=== PATIENT | female | born 1945 | race African-American/Black ===

== ENCOUNTER 2017-05-31 15:19 | Inpatient (IN) | payer MEDICARE, MEDICAID ==
[~2017-05-31] VITALS: Ht 170.2 cm; Wt 108.9 kg
[2017-05-31] MEDS ORDERED: AMLO10TA80 PO (15:26)
[2017-05-31] MEDS ORDERED: LISI-186 PO (15:26)
[2017-05-31] MEDS ORDERED: HYDR-4133 PO (15:27)
[2017-05-31 16:29] LABS: BASOPHILS % 0.6 % (0.0-2.0); HEMATOCRIT. 30.1 % (36.0-48.0); HEMOGLOBIN. 10.3 g/dL (12.0-16.0); LYMPHOCYTES % 30.8 % (20.0-50.0); MEAN CORPUSCULAR HEMOGLOBIN 33.3 pg (28.0-32.0); MEAN PLATELET VOLUME 8.2 fl (7.4-10.4); MONOCYTES % 9.4 % (2.0-8.0); NEUTROPHILS % 58.2 % (40.0-76.0); PLATELET 320 x1000/uL (130-400); RED CELL DISTRIBUTION WIDTH 16.9 % (11.6-14.6)
[2017-05-31 16:32] LABS: PROTHROMBIN TIME 10.3 sec (9.4-11.6)
[2017-05-31 16:33] LABS: CHLORIDE 97 mEq/L (98-107)
[2017-05-31] MEDS ORDERED: FUROSEMIDE 40MG/4ML VIAL IVP ONE (18:40)
[2017-05-31] MEDS ORDERED: LEVOFLOXACIN 750MG PREMIX 150 ML IV ONE (18:41)
[2017-05-31] MEDS ORDERED: IPRATROPIUM/ALBUTEROL 0.5-3(2.5)MG/3ML NEB INH PRN (19:30)
[2017-05-31] MEDS ORDERED: MAGNESIUM/ALUMINUM HYDROXIDE/SIMETHICONE 30ML UDC PO PRN (19:30)
[2017-05-31] MEDS ORDERED: POTASSIUM CHLORIDE 20MEQ TABLET SR PO NR (19:30)
[2017-05-31 19:46] LABS: CLARITY URINE CLEAR (CLEAR); COLOR URINE YELLOW (YELLOW); KETONES URINE NEGATIVE (NEGATIVE); LEUKOCYTE ESTERASE URINE 2+ (NEGATIVE); NITRITE URINE NEGATIVE (NEGATIVE); OCCULT BLOOD URINE TRACE (NEGATIVE); PH URINE >=9.0 (4.5-8.0); PROTEIN URINE 1+ (NEGATIVE); SPECIFIC GRAVITY URINE 1.008 (1.005-1.030); UROBILINOGEN URINE 0.2 E.U./dL (0.2-1.0)
[2017-05-31 19:59] LABS: OPIATES URINE SCREEN NEGATIVE (NEGATIVE)
[2017-05-31 20:00] LABS: *AMPHETAMINES SCREEN URINE NEGATIVE (NEGATIVE); *BARBITURATES SCREEN URINE NEGATIVE (NEGATIVE); *BENZODIAZEPINES SCREEN URINE NEGATIVE (NEGATIVE); *COCAINE SCREEN URINE NEGATIVE (NEGATIVE); CANNABINOID URINE SCREEN NEGATIVE (NEGATIVE); PHENCYCLIDINE URINE SCREEN NEGATIVE (NEGATIVE)
[2017-05-31 20:01] LABS: METHADONE URINE SCREEN NEGATIVE (NEGATIVE)
[2017-05-31] MEDS ORDERED: CEFTRIAXONE 1 G PREMIX 50 ML IV ONE (21:15)
[2017-05-31 22:25] VITALS: BP 131/75
[2017-05-31] MEDS ORDERED: CINA30 PO (23:43)
[2017-06-01] VITALS: BP 148/78
[2017-06-01] MEDS: IPRATROPIUM/ALBUTEROL 0.5-3(2.5)MG/3ML NEB INH SCH ×3 (00:37→22:06)
[2017-06-01] MEDS ORDERED: POTASSIUM CHLORIDE INJ 40 MEQ in DEXT 5% WATER 250 ML IV NR (02:00)
[2017-06-01] MEDS: ZOLPIDEM TARTRATE 5MG TABLET PO PRN ×2 (02:51→21:58)
[2017-06-01 04:00] VITALS: BP 140/89
[2017-06-01 07:01] LABS: BASOPHILS % 0.4 % (0.0-2.0); EOSINOPHILS % 1.3 % (0.0-5.0); HEMATOCRIT. 27.2 % (36.0-48.0); HEMOGLOBIN. 9.2 g/dL (12.0-16.0); LYMPHOCYTES % 27.2 % (20.0-50.0); MEAN CORPUSCULAR HEMOGLOBIN 32.9 pg (28.0-32.0); MEAN CORPUSCULAR VOLUME 97.4 fL (81.0-99.0); MEAN PLATELET VOLUME 8.5 fl (7.4-10.4); MONOCYTES % 10.2 % (2.0-8.0); NEUTROPHILS % 60.9 % (40.0-76.0); PLATELET 267 x1000/uL (130-400); RED BLOOD CELL COUNT 2.79 mill/uL (4.2-5.4)
[2017-06-01 07:35] LABS: PHOSPHORUS 5.8 mg/dL (2.5-4.9)
[2017-06-01 08:00] VITALS: BP 150/84
[2017-06-01] MEDS: OMEPRAZOLE 20MG CAPSULE EXTENDED RELEASE PO SCH (08:49)
[2017-06-01] MEDS ORDERED: POTASSIUM CHLORIDE 20MEQ TABLET SR PO NR (09:00)
[2017-06-01] MEDS: FOLIC ACID/VITAMIN B COMP W-C TABLET PO SCH (11:33)
[2017-06-01] MEDS ORDERED: FUROSEMIDE 40MG/4ML VIAL IVP NR (11:45)
[2017-06-01 12:00] VITALS: BP 154/66
[2017-06-01] MEDS: ASPIRIN 81MG EC TABLET PO SCH (12:52)
[2017-06-01] MEDS: ENOXAPARIN 30MG/0.3ML SYR SUBCUT SCH (12:53)
[2017-06-01] MEDS: SEVELAMER CARBONATE 800 MG TABLET PO SCH ×2 (13:10→18:10)
[2017-06-01] MEDS ORDERED: KCL 20MEQ/100ML PREMIX 100 ML IV NR (13:30)
[2017-06-01] MEDS ORDERED: KCL 20MEQ/100ML PREMIX 100 ML IV SCH (15:30)
[2017-06-01 16:00] VITALS: BP 140/72
[2017-06-01 16:55] LABS: BG BASE EXCESS 2.3 mmol/L (-2.0-2.0); BG CARBOXYHEMOGLOBIN 0.3 % (0.5-1.5); BG DEOXYHEMOGLOBIN 1.9 % (0.0-5.0); BG FRACTION INSPIRED OXYGEN 28; BG HCO3 ACT 25.1 mmol/L (22.0-26.0); BG METHEMOGLOBIN 0.1 % (0.0-1.5); BG OXYGEN SATURATION 98.1 % (92.0-98.5); BG OXYHEMOGLOBIN 97.7 % (94.0-97.0); BG PCO2 32.2 mmHg (35.0-45.0); BG SAMPLE SITE RIGHT RADIAL; BG TOTAL HEMOGLOBIN 9.9 g/dL (12.0-18.0); BG VENT MODE NASAL CANNULA
[2017-06-01] MEDS: AMLODIPINE 5MG TABLET PO SCH (18:31)
[2017-06-01 20:00] VITALS: BP 144/91
[2017-06-01] MEDS: LISINOPRIL 10MG TABLET PO SCH (21:11)
[2017-06-01] MEDS: CARVEDILOL 6.25 MG TABLET PO SCH (21:11)
[2017-06-02] VITALS: BP 132/63
[2017-06-02] MEDS: IPRATROPIUM/ALBUTEROL 0.5-3(2.5)MG/3ML NEB INH SCH ×2 (03:50→08:21)
[2017-06-02 04:00] VITALS: BP 122/66
[2017-06-02 06:05] LABS: BASOPHILS % 0.7 % (0.0-2.0); EOSINOPHILS % 2.8 % (0.0-5.0); HEMATOCRIT. 27.1 % (36.0-48.0); HEMOGLOBIN. 9.1 g/dL (12.0-16.0); LYMPHOCYTES % 32.5 % (20.0-50.0); MEAN CORPUSCULAR VOLUME 98.1 fL (81.0-99.0); MEAN PLATELET VOLUME 8.2 fl (7.4-10.4); PLATELET 247 x1000/uL (130-400); RED BLOOD CELL COUNT 2.76 mill/uL (4.2-5.4); RED CELL DISTRIBUTION WIDTH 16.9 % (11.6-14.6)
[2017-06-02 06:49] LABS: CHLORIDE 98 mEq/L (98-107)
[2017-06-02 07:02] LABS: PHOSPHORUS 5.1 mg/dL (2.5-4.9)
[2017-06-02 08:00] VITALS: BP 159/69
[2017-06-02] MEDS ORDERED: POTASSIUM CHLORIDE 20MEQ TABLET SR PO NR ×2 (08:15→10:00)
[2017-06-02] MEDS: SEVELAMER CARBONATE 800 MG TABLET PO SCH ×3 (08:47→17:49)
[2017-06-02] MEDS: ASPIRIN 81MG EC TABLET PO SCH (08:48)
[2017-06-02] MEDS: OMEPRAZOLE 20MG CAPSULE EXTENDED RELEASE PO SCH (08:48)
[2017-06-02] MEDS: AMLODIPINE 5MG TABLET PO SCH (08:48)
[2017-06-02] MEDS: LISINOPRIL 10MG TABLET PO SCH ×2 (08:48→21:52)
[2017-06-02] MEDS: FOLIC ACID/VITAMIN B COMP W-C TABLET PO SCH (08:49)
[2017-06-02] MEDS: ENOXAPARIN 30MG/0.3ML SYR SUBCUT SCH (08:50)
[2017-06-02] MEDS: CARVEDILOL 6.25 MG TABLET PO SCH ×2 (08:50→21:52)
[2017-06-02 12:00] VITALS: BP 114/66
[2017-06-02] MEDS: IPRATROPIUM/ALBUTEROL 0.5-3(2.5)MG/3ML NEB HHN SCH ×2 (15:19→21:36)
[2017-06-02] MEDS: FUROSEMIDE 40MG/4ML VIAL IVP SCH ×2 (15:33→17:49)
[2017-06-02 16:00] VITALS: BP 116/63
[2017-06-02 20:00] VITALS: BP 121/62
[2017-06-02] MEDS ORDERED: LEVOFLOXACIN 250MG PREMIX 50 ML IV SCH (20:00)
[2017-06-02] MEDS: BUDESONIDE 0.5MG/2ML NEB HHN SCH (21:36)
[2017-06-02] MEDS: ZOLPIDEM TARTRATE 5MG TABLET PO PRN (21:52)
[2017-06-02] MEDS: GUAIFENESIN 600MG ER TABLET PO SCH (21:52)
[2017-06-03] VITALS: BP 113/65
[2017-06-03] MEDS: IPRATROPIUM/ALBUTEROL 0.5-3(2.5)MG/3ML NEB HHN SCH ×6 (01:11→20:59)
[2017-06-03] MEDS: ONDANSETRON HCL 4MG/2ML VIAL IV PRN (01:51)
[2017-06-03 04:00] VITALS: BP 113/51
[2017-06-03 08:00] VITALS: BP 139/72
[2017-06-03 08:11] LABS: BASOPHILS % 0.5 % (0.0-2.0); EOSINOPHILS % 2.2 % (0.0-5.0); HEMATOCRIT. 28.6 % (36.0-48.0); HEMOGLOBIN. 9.7 g/dL (12.0-16.0); LYMPHOCYTES % 21.1 % (20.0-50.0); MEAN CORPUSCULAR HEMOGLOBIN 33.2 pg (28.0-32.0); MEAN CORPUSCULAR VOLUME 98.2 fL (81.0-99.0); MEAN PLATELET VOLUME 8.4 fl (7.4-10.4); MONOCYTES % 10.2 % (2.0-8.0); PLATELET 262 x1000/uL (130-400); RED BLOOD CELL COUNT 2.91 mill/uL (4.2-5.4); RED CELL DISTRIBUTION WIDTH 16.6 % (11.6-14.6)
[2017-06-03] MEDS: BUDESONIDE 0.5MG/2ML NEB HHN SCH ×2 (08:21→20:59)
[2017-06-03] MEDS: SEVELAMER CARBONATE 800 MG TABLET PO SCH ×3 (09:11→18:20)
[2017-06-03] MEDS: FAMOTIDINE 20MG TABLET PO SCH (09:11)
[2017-06-03] MEDS: GUAIFENESIN 600MG ER TABLET PO SCH ×2 (09:11→21:29)
[2017-06-03] MEDS: FOLIC ACID/VITAMIN B COMP W-C TABLET PO SCH (09:11)
[2017-06-03] MEDS: CARVEDILOL 6.25 MG TABLET PO SCH (09:11)
[2017-06-03] MEDS: AMLODIPINE 5MG TABLET PO SCH (09:12)
[2017-06-03] MEDS: ENOXAPARIN 30MG/0.3ML SYR SUBCUT SCH (09:12)
[2017-06-03] MEDS: LISINOPRIL 10MG TABLET PO SCH ×2 (09:12→21:30)
[2017-06-03] MEDS: FUROSEMIDE 40MG/4ML VIAL IVP SCH (09:13)
[2017-06-03 11:59] VITALS: BP 126/63
[2017-06-03 16:00] VITALS: BP 124/58
[2017-06-03 20:00] VITALS: BP_SYST 12; BP_SYST 121; BP_DIAS 62
[2017-06-03] MEDS: CARVEDILOL 12.5MG TABLET PO SCH (21:30)
[2017-06-03] MEDS: DOCUSATE SODIUM 100MG CAPSULE PO PRN (21:30)
[2017-06-03] MEDS: ZOLPIDEM TARTRATE 5MG TABLET PO PRN (21:30)
[2017-06-04] VITALS: BP 105/60
[2017-06-04] MEDS: IPRATROPIUM/ALBUTEROL 0.5-3(2.5)MG/3ML NEB HHN SCH ×6 (01:03→21:35)
[2017-06-04 04:00] VITALS: BP 111/51
[2017-06-04 07:00] LABS: BASOPHILS % 0.7 % (0.0-2.0); EOSINOPHILS % 2.7 % (0.0-5.0); HEMATOCRIT. 32.3 % (36.0-48.0); HEMOGLOBIN. 10.8 g/dL (12.0-16.0); LYMPHOCYTES % 27.2 % (20.0-50.0); MEAN CORPUSCULAR HEMOGLOBIN 32.7 pg (28.0-32.0); MEAN CORPUSCULAR VOLUME 98.3 fL (81.0-99.0); MEAN PLATELET VOLUME 8.2 fl (7.4-10.4); MONOCYTES % 9.6 % (2.0-8.0); NEUTROPHILS % 59.8 % (40.0-76.0); PLATELET 256 x1000/uL (130-400); RED BLOOD CELL COUNT 3.29 mill/uL (4.2-5.4); RED CELL DISTRIBUTION WIDTH 17.1 % (11.6-14.6)
[2017-06-04 08:00] VITALS: BP 112/60
[2017-06-04] MEDS: BUDESONIDE 0.5MG/2ML NEB HHN SCH ×2 (08:31→21:35)
[2017-06-04] MEDS ORDERED: FUROSEMIDE 40MG/4ML VIAL IVP SCH (09:00)
[2017-06-04] MEDS ORDERED: POTASSIUM CHLORIDE 20MEQ TABLET SR PO NR (11:00)
[2017-06-04] MEDS: CARVEDILOL 12.5MG TABLET PO SCH ×2 (11:06→21:17)
[2017-06-04] MEDS: GUAIFENESIN 600MG ER TABLET PO SCH ×2 (11:06→21:17)
[2017-06-04] MEDS: LISINOPRIL 10MG TABLET PO SCH ×2 (11:07→21:17)
[2017-06-04] MEDS: AMLODIPINE 5MG TABLET PO SCH (11:07)
[2017-06-04] MEDS: FOLIC ACID/VITAMIN B COMP W-C TABLET PO SCH (11:07)
[2017-06-04] MEDS: SEVELAMER CARBONATE 800 MG TABLET PO SCH ×2 (11:08→18:40)
[2017-06-04] MEDS: FAMOTIDINE 20MG TABLET PO SCH (11:08)
[2017-06-04] MEDS: ENOXAPARIN 30MG/0.3ML SYR SUBCUT SCH (11:11)
[2017-06-04 12:00] VITALS: BP 122/61
[2017-06-04 16:00] VITALS: BP 120/70
[2017-06-04] MEDS: LEVOFLOXACIN 250MG TABLET PO SCH (18:41)
[2017-06-04 20:00] VITALS: BP 117/69
[2017-06-04] MEDS: DOCUSATE SODIUM 100MG CAPSULE PO PRN (21:17)
[2017-06-04] MEDS: ZOLPIDEM TARTRATE 5MG TABLET PO PRN (21:18)
[2017-06-05] VITALS: BP 112/53
[2017-06-05] MEDS: ONDANSETRON HCL 4MG/2ML VIAL IV PRN ×2 (01:48→10:01)
[2017-06-05] MEDS: IPRATROPIUM/ALBUTEROL 0.5-3(2.5)MG/3ML NEB HHN SCH ×6 (02:16→20:46)
[2017-06-05] MEDS: DIPHENHYDRAMINE 50MG CAPSULE PO PRN (02:37)
[2017-06-05 04:00] VITALS: BP 107/50
[2017-06-05 06:36] LABS: BASOPHILS % 0.7 % (0.0-2.0); EOSINOPHILS % 2.8 % (0.0-5.0); HEMATOCRIT. 29.6 % (36.0-48.0); LYMPHOCYTES % 36.5 % (20.0-50.0); MEAN CORPUSCULAR HEMOGLOBIN 33.3 pg (28.0-32.0); MEAN CORPUSCULAR VOLUME 98.1 fL (81.0-99.0); MEAN PLATELET VOLUME 8.1 fl (7.4-10.4); MONOCYTES % 11.3 % (2.0-8.0); NEUTROPHILS % 48.7 % (40.0-76.0); PLATELET 256 x1000/uL (130-400); RED BLOOD CELL COUNT 3.01 mill/uL (4.2-5.4); RED CELL DISTRIBUTION WIDTH 16.9 % (11.6-14.6)
[2017-06-05 07:14] LABS: CHLORIDE 100 mEq/L (98-107)
[2017-06-05 08:00] VITALS: BP 113/52
[2017-06-05] MEDS: BUDESONIDE 0.5MG/2ML NEB HHN SCH (08:05)
[2017-06-05] MEDS: CARVEDILOL 12.5MG TABLET PO SCH ×2 (09:25→21:00)
[2017-06-05] MEDS: SEVELAMER CARBONATE 800 MG TABLET PO SCH ×4 (09:25→17:34)
[2017-06-05] MEDS: FUROSEMIDE 20MG TABLET PO SCH (09:25)
[2017-06-05] MEDS: FAMOTIDINE 20MG TABLET PO SCH (09:25)
[2017-06-05] MEDS: FOLIC ACID/VITAMIN B COMP W-C TABLET PO SCH (09:25)
[2017-06-05] MEDS: AMLODIPINE 5MG TABLET PO SCH (09:26)
[2017-06-05] MEDS: GUAIFENESIN 600MG ER TABLET PO SCH ×2 (09:26→21:17)
[2017-06-05] MEDS: LISINOPRIL 10MG TABLET PO SCH ×2 (09:26→21:00)
[2017-06-05] MEDS: ENOXAPARIN 30MG/0.3ML SYR SUBCUT SCH (09:27)
[2017-06-05 12:00] VITALS: BP 118/67
[2017-06-05 16:00] VITALS: BP 106/60
[2017-06-05 20:00] VITALS: BP 107/49
[2017-06-05] MEDS: ZOLPIDEM TARTRATE 5MG TABLET PO PRN (21:25)
[2017-06-06] VITALS: BP 112/53
[2017-06-06] MEDS: IPRATROPIUM/ALBUTEROL 0.5-3(2.5)MG/3ML NEB HHN SCH ×7 (00:40→20:32)
[2017-06-06 04:00] VITALS: BP 99/45
[2017-06-06 07:15] LABS: BASOPHILS % 0.4 % (0.0-2.0); EOSINOPHILS % 2.2 % (0.0-5.0); HEMATOCRIT. 29.8 % (36.0-48.0); HEMOGLOBIN. 10.2 g/dL (12.0-16.0); LYMPHOCYTES % 37.2 % (20.0-50.0); MEAN CORPUSCULAR HEMOGLOBIN 33.4 pg (28.0-32.0); MEAN CORPUSCULAR VOLUME 97.5 fL (81.0-99.0); MEAN PLATELET VOLUME 7.9 fl (7.4-10.4); MONOCYTES % 10.8 % (2.0-8.0); NEUTROPHILS % 49.4 % (40.0-76.0); PLATELET 251 x1000/uL (130-400); RED BLOOD CELL COUNT 3.05 mill/uL (4.2-5.4); RED CELL DISTRIBUTION WIDTH 16.8 % (11.6-14.6)
[2017-06-06 08:00] VITALS: BP 96/38
[2017-06-06] MEDS: AMLODIPINE 5MG TABLET PO SCH (09:00)
[2017-06-06] MEDS: ENOXAPARIN 30MG/0.3ML SYR SUBCUT SCH (09:00)
[2017-06-06] MEDS: LISINOPRIL 10MG TABLET PO SCH ×2 (09:00→21:08)
[2017-06-06] MEDS: FUROSEMIDE 20MG TABLET PO SCH (09:51)
[2017-06-06] MEDS: SEVELAMER CARBONATE 800 MG TABLET PO SCH ×3 (09:51→17:19)
[2017-06-06] MEDS: FOLIC ACID/VITAMIN B COMP W-C TABLET PO SCH (09:51)
[2017-06-06] MEDS: CARVEDILOL 12.5MG TABLET PO SCH ×2 (09:52→21:08)
[2017-06-06] MEDS: FAMOTIDINE 20MG TABLET PO SCH (09:52)
[2017-06-06] MEDS: GUAIFENESIN 600MG ER TABLET PO SCH ×2 (10:00→21:07)
[2017-06-06 12:00] VITALS: BP 116/65
[2017-06-06] MEDS: LEVOFLOXACIN 250MG TABLET PO SCH (13:02)
[2017-06-06 16:00] VITALS: BP 109/68
[2017-06-06 20:00] VITALS: BP 114/55
[2017-06-06] MEDS: ZOLPIDEM TARTRATE 5MG TABLET PO PRN (21:55)
[2017-06-07] VITALS: BP_SYST 101
[2017-06-07] MEDS: IPRATROPIUM/ALBUTEROL 0.5-3(2.5)MG/3ML NEB HHN SCH ×6 (00:30→20:42)
[2017-06-07 04:00] VITALS: BP 95/51
[2017-06-07 08:00] VITALS: BP 90/55
[2017-06-07] MEDS: SEVELAMER CARBONATE 800 MG TABLET PO SCH ×4 (08:10→18:10)
[2017-06-07] MEDS: AMLODIPINE 5MG TABLET PO SCH ×2 (09:00→09:17)
[2017-06-07] MEDS: LISINOPRIL 10MG TABLET PO SCH ×3 (09:00→20:48)
[2017-06-07] MEDS: ENOXAPARIN 30MG/0.3ML SYR SUBCUT SCH (09:00)
[2017-06-07] MEDS: CARVEDILOL 12.5MG TABLET PO SCH ×2 (09:00→09:30)
[2017-06-07] MEDS: FOLIC ACID/VITAMIN B COMP W-C TABLET PO SCH (09:16)
[2017-06-07] MEDS: FUROSEMIDE 20MG TABLET PO SCH (09:18)
[2017-06-07] MEDS: FAMOTIDINE 20MG TABLET PO SCH (09:18)
[2017-06-07] MEDS: GUAIFENESIN 600MG ER TABLET PO SCH ×2 (09:24→20:48)
[2017-06-07 12:00] VITALS: BP 112/64
[2017-06-07 16:00] VITALS: BP 101/60
[2017-06-07 16:40] LABS: HEPATITIS B SURFACE ANTIGEN NEGATIVE
[2017-06-07 17:09] LABS: HEPATITIS B CORE AB IGM NEGATIVE
[2017-06-07 17:10] LABS: HEPATITIS A AB IGM NEGATIVE (NEGATIVE)
[2017-06-07 20:00] VITALS: BP 98/45
[2017-06-07] MEDS: ZOLPIDEM TARTRATE 5MG TABLET PO PRN (20:47)
[2017-06-08 00:05] VITALS: BP 99/55
[2017-06-08] MEDS: ONDANSETRON HCL 4MG/2ML VIAL IV PRN (01:21)
[2017-06-08] MEDS: ACETAMINOPHEN 325MG TABLET PO PRN ×2 (01:39→07:30)
[2017-06-08 04:00] VITALS: BP 95/47
[2017-06-08] MEDS: IPRATROPIUM/ALBUTEROL 0.5-3(2.5)MG/3ML NEB HHN SCH (05:20)
[2017-06-08 08:00] VITALS: BP 91/46
[2017-06-08] MEDS: CARVEDILOL 12.5MG TABLET PO SCH (08:11)
[2017-06-08] MEDS: FAMOTIDINE 20MG TABLET PO SCH (08:28)
[2017-06-08] MEDS: SEVELAMER CARBONATE 800 MG TABLET PO SCH ×3 (08:28→17:44)
[2017-06-08] MEDS: FUROSEMIDE 20MG TABLET PO SCH (08:28)
[2017-06-08] MEDS: LEVOFLOXACIN 250MG TABLET PO SCH (08:28)
[2017-06-08] MEDS: FOLIC ACID/VITAMIN B COMP W-C TABLET PO SCH (08:28)
[2017-06-08] MEDS: GUAIFENESIN 600MG ER TABLET PO SCH (08:29)
[2017-06-08] MEDS: LISINOPRIL 10MG TABLET PO SCH (08:37)
[2017-06-08] MEDS: ENOXAPARIN 30MG/0.3ML SYR SUBCUT SCH (08:37)
[2017-06-08 12:00] VITALS: BP 94/45
[2017-06-08] MEDS: DIPHENHYDRAMINE 50MG CAPSULE PO PRN (14:19)
[2017-06-08 14:43] VITALS: BP 97/63
[2017-06-08 16:00] VITALS: BP 94/47
== END 2017-06-08 19:10 | disposition left against medical advice (07) | DRG 871 ==
LOC: ER 15:41 → ENRESERV 16:11 → EDBEDREQ 18:14 → SUPCPDRO 18:18 → EDBEDREQTM 18:41 → EDBEDREQ 18:41 → 7WST 18:41
PROVIDERS: ADMIT Family Medicine Adult Medicine; ATTEND Family Medicine Adult Medicine
DX: A41.9 Sepsis, unspecified organism (principal); N18.6 End stage renal disease; J96.00 Acute respiratory failure, unspecified whether with hypoxia or hypercapnia; I13.2 Hypertensive heart and chronic kidney disease with heart failure and with stage 5 chronic kidney disease, or end stage renal disease; E44.0 Moderate protein-calorie malnutrition; I27.20 Pulmonary hypertension, unspecified; E11.22 Type 2 diabetes mellitus with diabetic chronic kidney disease; I42.9 Cardiomyopathy, unspecified; I50.23 Acute on chronic systolic (congestive) heart failure; N39.0 Urinary tract infection, site not specified; D63.8 Anemia in other chronic diseases classified elsewhere; E78.5 Hyperlipidemia, unspecified; E87.6 Hypokalemia; I34.0 Nonrheumatic mitral (valve) insufficiency; Z99.2 Dependence on renal dialysis; Z90.710 Acquired absence of both cervix and uterus; Z87.891 Personal history of nicotine dependence; Z83.3 Family history of diabetes mellitus; Z79.899 Other long term (current) drug therapy; Z68.37 Body mass index [BMI] 37.0-37.9, adult; Z53.21 Procedure and treatment not carried out due to patient leaving prior to being seen by health care provider
CPT/HCPCS: 36415; 36600; 70551; 71045; 71250; 76604; 80048; 80053; 80305; 81003; 82375; 82805; 82962; 83605; 83735; 83880; 84100; 84132; 84484; 85025; 85610; 86705; 86709; 86803; 87040; 87070; 87086; 87205; 87340; 89050; 92523; 93306; 93970; 94640; 96374; 96375; 97116; 97162; 97166; 99291; C1893; J1650; J1940; J1956; J2405; J3480; J7040; J7060; J7620; J7626; Q0163